=== PATIENT | female | born 1950 | race Caucasian/White ===

== ENCOUNTER → 2018-06-08 | Outpatient (CLI) | payer OTHER ==
[~2018-06-08] MED LIST: BAYER CHEWABLE81 MG PO; LISINOPRIL-HCT1 EACH PO; LISINOPRIL20 MG; PREVACID15 MG PO; PRINIVIL20 MG PO; TOPROL XL25 MG PO
== END ==
LOC: M.RAD 06-02 10:58
DX: Z12.31 Encounter for screening mammogram for malignant neoplasm of breast (principal); Z13.820 Encounter for screening for osteoporosis; E28.39 Other primary ovarian failure; Z78.0 Asymptomatic menopausal state

== ENCOUNTER → 2020-08-26 | Outpatient (CLI) | payer OTHER | LOC: M.RAD 12:52 | PROVIDERS: ATTEND Family Medicine | DX: Z12.31 Encounter for screening mammogram for malignant neoplasm of breast (principal); Z12.2 Encounter for screening for malignant neoplasm of respiratory organs; R10.32 Left lower quadrant pain; Z87.891 Personal history of nicotine dependence; Q44.6 Cystic disease of liver; N64.89 Other specified disorders of breast ==